=== PATIENT | male | born 1975 | race Caucasian/White ===

== ENCOUNTER 2017-08-13 14:59 | Inpatient (IN) | payer MEDICARE, OTHER ==
[~2017-08-13] VITALS: Ht 172.7 cm; Wt 50.0 kg
[~2017-08-13 14:59] MED LIST: ASCO500C PO; COLA50CA PO; FENT75DI TD; LORA-392 PO; LORTA5 PO; MIRA33502 PO; MIRTA15 PO; MORP30SU PO; MULTTAB PO; ZINC220C3 PO; ZOLP1TAB32 PO
[2017-08-13 15:11] VITALS: BP 99/62; PULSE 98; RESP 17; TEMP 98.6; O2SAT 97
[2017-08-13 16:30] VITALS: BP 98/68; PULSE 92; RESP 17; O2SAT 97
[2017-08-13] MEDS ORDERED: SODIUM CHLOR 0.9% 1000 ML INJ 1,000 ML IV ONE (16:45)
--- NOTE | 2017-08-13 17:47 | PD ---
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 Hemoglobin was reported to be 6.2 with hematocrit of 22.4. The patient's care team, including the hospice nurse, spoke with the patient's father and decision-maker who gave permission for the patient to be transported to [place] and had blood transfusion should they be required. On arrival the patient is alert and oriented. He does have some repetitive vocalizations but he intermittently answers questions appropriately. He has no complaints. He is requesting a meal. PFSH Past Medical History Genitourinary: Yes (URETHRAL STRICTURES--OBSTRUCTIVE UROPATHY/TINAJERO CATH, FREQUENT UTI) Musculoskeletal: Yes (CONTRACTURE OF JOINTS MULTIPLE SITES, CHRONIC R SHOULDER DISLOCATION) Neurologic: Yes (ANOXIC BRAIN DAMAGE, ENCEPAHLOPATHY, EXPRESSIVE APHASIA) Psychiatric: Yes (ANXIETY, ANOXIC BRAIN DAMAGE, PSYCHOSIS,DEPRESSION) Reproductive: No Past Surgical History Body Medical Devices: MAMTA FILTER, BACLOFEN PUMP Social History Tobacco Use: Yes (distant) Substance Use: Yes (HX OF OVERDOSE) Allergies-Medications (Allergen,Severity, Reaction): Coded Allergies: No Known Allergies (Unverified , 03/10/14) Reported Meds & Prescriptions Reported Meds & Active Scripts Active Reported Multimineral Plus (Multiple Vitamins W/ Minerals) Plus Tab 1 Tab PO DAILY Zinc Sulfate 220 Mg Cap 220 Mg PO DAILY Vitamin C (Ascorbic Acid) 500 Mg Cap 500 Mg PO BID Miralax (Polyethylene Glycol) 255 Gm Powd 1 Capful PO TID MIX 1 CAPFUL (17 GM) IN 8 OZ WATER Morphine Sulfate 30 Mg Tab 30 Mg PO Q8 Mirtazapine 15 Mg Tab 15 Mg PO HS [place] 5/325 (Hydrocodone-Acetaminophen) 325 Mg/5 Mg Tab 1 Tab PO BID PRN Fentanyl 75 Mcg/Hr Dis 75 Mcg TD Q3D Colace (Docusate Sodium) 50 Mg Cap 100 Mg PO BID Ativan (Lorazepam) 0.5 Mg Tab 0.5 Tab PO Q8 PRN Ambien 5 Mg Tab (Zolpidem Tartrate) 5 Mg Tab 5 Mg PO HS Review of Systems Except as stated in HPI: all other systems reviewed are Neg Physical Exam Narrative GENERAL: Thin, contracted male in no acute distress. SKIN: Focused skin assessment warm/dry. Mild erythema in the coccygeal region. No broken skin noted. HEAD: Normocephalic. EYES: No scleral icterus. No injection or drainage. NECK: Supple, trachea midline. No JVD or lymphadenopathy. CARDIOVASCULAR: Regular rate and rhythm without murmurs, gallops, or rubs. RESPIRATORY: Breath sounds clear and equal bilaterally. No accessory muscle use. GASTROINTESTINAL: Abdomen scaphoid, nontender, active bowel sounds. RECTAL EXAM: No masses or tenderness, stool is brown. Guaiac weakly positive. MUSCULOSKELETAL: No cyanosis, or edema. Contractures in all limbs. BACK: Nontender without obvious deformity. No CVA tenderness. Data Data Last Documented VS Vital Signs Date Time Temp Pulse Resp B/P (MAP) Pulse Ox O2 Delivery O2 Flow Rate FiO2 08/13/17 15:11 98.6 98 17 99/62 (74) 97 Orders Orders Complete Blood Count With Diff (08/13/17 16:33) Comprehensive Metabolic Panel (08/13/17 16:33) Iv Access Insert/Monitor (08/13/17 16:33) Ecg Monitoring (08/13/17 16:33) Oximetry (08/13/17 16:33) Coag Profile (08/13/17 16:33) Type And Screen (08/13/17 16:33) Sodium Chlor 0.9% 1000 Ml Inj (Ns 1000 M (08/13/17 16:45) Red Blood Cells (Rbc) (08/13/17 17:52) Blood Product Administration (08/13/17 17:52) Sodium Chlor 0.9% 250 Ml Inj (Ns 250 Ml (08/13/17 18:00) Admit Order (Ed Use Only) (08/13/17 18:02) MDM Medical Decision Making Medical Screen Exam Complete: Yes Emergency Medical Condition: Yes Differential Diagnosis Anemia versus GI bleed versus dehydration versus metabolic derangement versus other Narrative Course 42-year-old male with 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 Hemoglobin was reported to be 6.2 with hematocrit of 22.4. The patient's care team, including the hospice nurse, spoke with the patient's father and decision-maker who gave permission for the patient to be transported to [place] and had blood transfusion should they be required. On arrival the patient is alert and oriented. He does have some repetitive vocalizations but he intermittently answers questions appropriately. He has no complaints. He is requesting a meal. Afebrile, pulse 98, BP 99/62, pulse ox 97% on presentation. Physical exam reveals an alert male in no acute distress. Cachectic and contractured. Weakly guaiac positive on rectal exam. I spoke with the hospice nurse, Gina Marley who was not involved in the decision to transfer the patient to the hospital today. She attempted to reach the patient's father and decision-maker but was unable. I spoke with the sales account director, Padmaja Iglesias, at [facility]. She states that a second sales account director spoke with the father today. She provided the father's contact information. I spoke with the patient's father, Mr. Wally Reyes at 1639. He consents to lab, fluids, blood transfusion and consult to gastroenterology. He does not rescind the DNR. Patient's father states that he will be into the hospital very early tomorrow morning. In the meantime he is reachable by cell phone area code or [phone] On review of the patient's record his hemoglobin has been tr trending downward since 07/16/17. IV was established, 1 L normal saline ordered. CBC, CMP, coags, type and screen , 2 units PRBC pending. I spoke with Dr. Minor who agrees to accept the patient for observation by the medicine service. Please see medicine notes for disposition. Nini Hoover Aug 13, 2017 17:47
[2017-08-13] MEDS ORDERED: SODIUM CHLOR 0.9% 250 ML INJ 250 ML IV ONE (18:00)
--- NOTE | 2017-08-13 18:11 | HHI.HP ---
HPI Service [facility] Hospitalists Primary Care Physician Donis Aguillon MD Admission Diagnosis Anemia, GI bleed Diagnoses: Chief Complaint: Anemia GIB Travel History International Travel<30 Days: No Contact w/Intl Traveler <30 Da: No Traveled to Known Affected Are: No History of Present Illness Written by Sharlene Hdz, acting as scribe for Dr. Minor on 08/13/17 at 18: 07. This is a 42-year-old male with PMH of anoxic brain injury secondary to drug overdose currently under [facility] who presents to [facility] ED for evaluation of anemia reported by lab work completed at the patients facility. Unable to obtain history from patient secondary to cognitive impairment and therefore history is obtained from discussion with the ED and review of the medical record. Reportedly, hemoglobin was reported to be 6.2 and hematocrit of 22.4. Per the ED note, the patient's care team, including the hospice nurse, spoke with the patient's father who is the decision-maker and gave permission for the patient to be transported to [place] and have blood transfusion should that be needed. Also per ED note, patient's father consents to lab, fluids, blood transfusion and consult to gastroenterology. He does not resend patient's DO NOT RESUSCITATE status. Patient is alert and oriented. He does have some repetitive vocalizations but he intermittently answers questions appropriately. He has no complaints. He is wanting to eat. Patients stool hemoccult was positive. Review of Systems Unable to complete 10 point review of systems secondary to patients cognitive impairment Past Family Social History Past Medical History Hx of overdose with anoxic brain injury Past Surgical History Baclofen pain pump insertion [place] filter Reported Medications Multimineral Plus (Multiple Vitamins W/ Minerals) Plus Tab 1 Tab PO DAILY Zinc Sulfate 220 Mg Cap 220 Mg PO DAILY Vitamin C (Ascorbic Acid) 500 Mg Cap 500 Mg PO BID Miralax (Polyethylene Glycol) 255 Gm Powd 1 Capful PO TID MIX 1 CAPFUL (17 GM) IN 8 OZ WATER Morphine Sulfate 30 Mg Tab 30 Mg PO Q8 Mirtazapine 15 Mg Tab 15 Mg PO HS [place] 5/325 (Hydrocodone-Acetaminophen) 325 Mg/5 Mg Tab 1 Tab PO BID PRN Fentanyl 75 Mcg/Hr Dis 75 Mcg TD Q3D Colace (Docusate Sodium) 50 Mg Cap 100 Mg PO BID Ativan (Lorazepam) 0.5 Mg Tab 0.5 Tab PO Q8 PRN Ambien 5 Mg Tab (Zolpidem Tartrate) 5 Mg Tab 5 Mg PO HS Allergies: Coded Allergies: No Known Allergies (Unverified , 03/10/14) Active Ordered Medications Current Medications Medications (Trade) Dose Ordered Sig/Juhi Route Start Time Stop Time Status Last Admin Sodium Chloride 250 ml @ 15 mls/hr ONCE ONCE IV 08/13/17 18:00 08/14/17 10:39 Family History Unable to obtain Social History Unable to obtain from patient Hx of anoxic brain injury secondary to drug overdose Physical Exam Vital Signs Vital Signs Date Time Temp Pulse Resp B/P (MAP) Pulse Ox O2 Delivery O2 Flow Rate FiO2 08/13/17 15:11 98.6 98 17 99/62 (74) 97 Physical Exam GENERAL: This is a thin male patient, INAD. Awake and alert. SKIN: No rashes, ecchymoses or lesions. Pale. Cool and dry. HEAD: Atraumatic. Normocephalic. No temporal or scalp tenderness. EYES: Pupils equal round and reactive. Extraocular motions intact. No scleral icterus. No injection or drainage. ENT: Nose without bleeding or purulent drainage. Throat without erythema, tonsillar hypertrophy or exudate. Uvula midline. Airway patent. NECK: Trachea midline. No lymphadenopathy. Supple, nontender, no meningeal signs. CARDIOVASCULAR: Tachycardic without murmurs, gallops, or rubs. RESPIRATORY: Clear to auscultation. Breath sounds equal bilaterally. No wheezes , rales, or rhonchi. GASTROINTESTINAL: Abdomen soft, non-tender, nondistended. No hepato-splenomegaly , or palpable masses. No guarding. s/p Baclofen pain pump insertion. MUSCULOSKELETAL: Extremity contractures in all limbs. No edema noted. NEUROLOGICAL: Awake and alert. Repetitive vocalizations but does answer some questions appropriately. Result Diagram: 08/13/17180908/13/171809 Caprini VTE Risk Assessment Caprini VTE Risk Assessment: Mod/High Risk (score >= 2) Caprini Risk Assessment Model Point Value = 1 Point Value = 2 Point Value = 3 Point Value = 5 Age 41-60 Minor surgery BMI > 25 kg/m2 Swollen legs Varicose veins or History of unexplained or recurrent spontaneous Oral contraceptives or hormone replacement Sepsis (< 1 month) Serious lung disease, including pneumonia (< 1 month) Abnormal pulmonary function Acute myocardial infarction Congestive heart failure (< 1 month) History of inflammatory bowel disease Medical patient at bed rest Age 61-74 Arthroscopic surgery Major open surgery (> 45 min) Laparoscopic surgery (> 45 min) Malignancy Confined to bed (> 72 hours) Immobilizing plaster cast Central venous access Age >= 75 History of VTE Family history of VTE Factor V Leiden Prothrombin [id number] Lupus anticoagulant Anticardiolipin antibodies Elevated serum homocysteine Heparin-induced thrombocytopenia Other congenital or acquired thrombophilia Stroke (< 1 month) Elective arthroplasty Hip, pelvis, or leg fracture Acute spinal cord injury (< 1 month) Prophylaxis Regimen Total Risk Factor Score Risk Level Prophylaxis Regimen 0-1 Low Early ambulation 2 Moderate Order ONE of the following: *Sequential Compression Device (SCD) *Heparin 5000 units SQ BID 3-4 Higher Order ONE of the following medications: *Heparin 5000 units SQ TID *Enoxaparin/Lovenox 40 mg SQ daily (WT < 150 kg, CrCl > 30 mL/min) *Enoxaparin/Lovenox 30 mg SQ daily (WT < 150 kg, CrCl > 10-29 mL/min) *Enoxaparin/Lovenox 30 mg SQ BID (WT < 150 kg, CrCl > 30 mL/min) AND/OR *Sequential Compression Device (SCD) 5 or more Highest Order ONE of the following medications: *Heparin 5000 units SQ TID (Preferred with Epidurals) *Enoxaparin/Lovenox 40 mg SQ daily (WT < 150 kg, CrCl > 30 mL/min) *Enoxaparin/Lovenox 30 mg SQ daily (WT < 150 kg, CrCl > 10-29 mL/min) *Enoxaparin/Lovenox 30 mg SQ BID (WT < 150 kg, CrCl > 30 mL/min) AND *Sequential Compression Device (SCD) Assessment and Plan Assessment and Plan 42-year-old male with PMH of anoxic brain injury secondary to drug overdose currently under [facility] care [facility] who presents to [facility] ED for evaluation of anemia reported by lab work completed at the patients facility. Symptomatic anemia GIB - Hemoglobin 6.2 08/10/17 - Hemoccult-positive - ED staff in the process of trying to obtain blood specimen to repeat H&H - Protonic gtt - Consult GI, appreciate recommendations - Obtain iron studies, B12 and folate level - Transfuse 2 units of PRBCs. Continue to monitor hemoglobin closely. Hypotensive - IVF ordered - Monitor intake and output - bed rest - continue to monitor BP closely - continuous cardiac monitoring Anoxic brain injury secondary to drug overdose 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 - Unsure of patient's ability to swallow - Nursing bedside swallow evaluation - Clear liquid diet - Patient is a DO NOT RESUSCITATE DVT prophylaxis - Chemoprophylaxis contraindicated at this time secondary to GIB - Bilateral SCD/BREANNA hose This note was transcribed by shamir Hdz. I, Dr. Aurea Minor personally performed the history, physical exam, and medical decision making; and confirmed the accuracy of the information in the transcribed note. Authenticated by Dr. Aurea Minor on 08/13/17 at 1810. Code Status DNR Discussed Condition With ED physician, nursing staff, patient's father 2 Midnight Certification Type: Admission for Inpatient Services Order for Inpatient Services The services are ordered in accordance with Medicare regulations or non- Medicare payer requirements, as applicable. In the case of services not specified as inpatient-only, they are appropriately provided as inpatient services in accordance with the 2-midnight benchmark. Estimated LOS (days): 2 days is the estimated time the patient will need to remain in the hospital, assuming treatment plan goals are met and no additional complications. Post-Hospital Plan: Not yet determined Sharlene Hdz Aug 13, 2017 18:11 Aurea Minor MD Aug 13, 2017 19:16
[2017-08-13] MEDS: D5-1/2 NS + KCL 20 MEQ INJ 1,000 ML IV SCH (18:16)
[2017-08-13 18:27] VITALS: O2SAT 96
[2017-08-13] MEDS ORDERED: NALOXONE HCL 0.4 MG/ML AMP IV PUSH PRN (18:30)
[2017-08-13] MEDS ORDERED: BISACODYL 10 MG SUPP RECTAL PRN (18:30)
[2017-08-13] MEDS ORDERED: MAGNESIUM HYDROXIDE SUSP 30 ML CUP PO PRN (18:30)
[2017-08-13] MEDS ORDERED: ACETAMINOPHEN 325 MG TAB PO PRN (18:30)
[2017-08-13] MEDS ORDERED: SODIUM CHLORIDE 0.9% FLUSH 10 ML FLUSH IV FLUSH PRN (18:30)
[2017-08-13] MEDS ORDERED: LACTULOSE SYRUP 20 GM/30 ML CUP PO PRN (18:30)
[2017-08-13] MEDS ORDERED: ONDANSETRON HCL 4 MG/2 ML VIAL IVP PRN (18:30)
[2017-08-13] MEDS ORDERED: SENNOSIDES 8.6 MG TAB PO PRN (18:30)
[2017-08-13 18:38] LABS: AUTOMATED NEUTROPHIL # 5.8 TH/MM3 (1.8-7.7); BASOPHIL % 0.3 % (0.0-2.0); EOSINOPHIL # 0.1 TH/MM3 (0-0.4); HEMATOCRIT 25.5 % (39.0-51.0); HEMOGLOBIN 7.4 GM/DL (13.0-17.0); LYMPH % 18.8 % (9.0-44.0); LYMPHOCYTE # 1.5 TH/MM3 (1.0-4.8); MEAN CELL VOLUME 66.4 FL (80.0-100.0); MEAN CORPUSCULAR HEMOGLOBIN 19.2 PG (27.0-34.0); MEAN PLATELET VOLUME 7.1 FL (7.0-11.0); MONO % 8.3 % (0.0-8.0); MONOCYTE # 0.7 TH/MM3 (0-0.9); NEUT % 71.6 % (16.0-70.0); PLATELET COUNT 291 TH/MM3 (150-450); RED BLOOD COUNT 3.84 MIL/MM3 (4.50-5.90); RED CELL DISTRIBUTION WIDTH 21.6 % (11.6-17.2); WHITE BLOOD COUNT 8.1 TH/MM3 (4.0-11.0)
[2017-08-13 18:50] LABS: ALBUMIN 1.7 GM/DL (3.4-5.0); AST (GOT) 15 U/L (15-37); BICARBONATE 28.3 MEQ/L (21.0-32.0); BLOOD UREA NITROGEN 13 MG/DL (7-18); CALCIUM 8.4 MG/DL (8.5-10.1); CHLORIDE 109 MEQ/L (98-107); GLOMERULAR FILTRATION RATE 83 ML/MIN (>89); GLUCOSE,RANDOM 84 MG/DL (74-106); SODIUM (NA) 142 MEQ/L (136-145)
[2017-08-13 18:51] LABS: ALT (GPT) 9 U/L (12-78)
[2017-08-13 18:59] LABS: ALKALINE PHOSPHATASE 73 U/L (45-117); IRON (FE) 14 MCG/DL (65-175); TOTAL BILIRUBIN ADULT 0.3 MG/DL (0.2-1.0); TOTAL IRON BINDING CAPACITY 175 MCG/DL (250-450); TOTAL PROTEIN 7.7 GM/DL (6.4-8.2)
[2017-08-13 19:05] LABS: MEAN CORPUSCULAR HGB CONC 28.9 % (32.0-36.0)
[2017-08-13 19:27] LABS: FERRITIN 87 NG/ML (26-388); FOLATE 5.5 NG/ML (3.1-17.5)
[2017-08-13] MEDS ORDERED: PANTOPRAZOLE INJ 80 MG in SODIUM CHLORIDE 0.9% INJ 35 ML IV ONE (19:46)
[2017-08-13 21:00] VITALS: BP 120/72; PULSE 121; RESP 18; TEMP 97.3; O2SAT 95
[2017-08-13] MEDS ORDERED: LORazepam 0.5 MG TAB PO PRN (21:00)
[2017-08-13] MEDS ORDERED: ACETAMINOPHEN/HYDROcodone 325 MG/10 MG TAB PO PRN (21:00)
[2017-08-13] MEDS: SODIUM CHLORIDE 0.9% FLUSH 10 ML FLUSH IV FLUSH SCH (21:19)
[2017-08-13] MEDS: PANTOPRAZOLE INJ 80 MG in SODIUM CHLORIDE 0.9% INJ 100 ML IV SCH (21:19)
[2017-08-13] MEDS ORDERED: PILL SPLITTER OTHER PRN (21:30)
[2017-08-13 21:33] LABS: INTERNATIONAL NORMALIZED RATIO 1.1 RATIO; PROTHROMBIN TIME - PATIENT 11.2 SEC (9.8-11.6)
[2017-08-13] MEDS: CARISOPRODOL 350 MG TAB PO SCH (22:02)
[2017-08-13] MEDS: DIVALPROEX SODIUM SPRINKLES 125 MG CAP PO SCH (22:02)
[2017-08-13] MEDS: MIRTAZAPINE 15 MG TAB PO SCH (22:02)
[2017-08-13] MEDS: LORazepam 0.5 MG TAB PO SCH (22:02)
[2017-08-13] MEDS: MORPHINE SULFATE 30 MG CONTROLLED RELEASE TAB PO SCH (22:02)
[2017-08-13] MEDS: traZODone HCL 50 MG TAB PO SCH (22:04)
[2017-08-13 23:22] VITALS: BP 109/57; PULSE 107; RESP 17; TEMP 98.7; O2SAT 91
[2017-08-13 23:42] VITALS: BP 101/56; PULSE 102; RESP 18; TEMP 98.1; O2SAT 92
[2017-08-14] VITALS (10 sets, daily range): BP systolic 105–133; BP diastolic 60–77; PULSE 18–101; RESP 16–19; TEMP 97.5–98.1; O2SAT 93–98
[2017-08-14] MEDS: D5-1/2 NS + KCL 20 MEQ INJ 1,000 ML IV SCH ×2 (06:23→14:50)
[2017-08-14] MEDS: CARISOPRODOL 350 MG TAB PO SCH ×3 (06:24→22:18)
[2017-08-14] MEDS: LORazepam 0.5 MG TAB PO SCH ×3 (06:24→22:17)
[2017-08-14] MEDS: MORPHINE SULFATE 30 MG CONTROLLED RELEASE TAB PO SCH ×3 (06:24→22:18)
[2017-08-14 07:30] LABS: BASOPHIL % 0.5 % (0.0-2.0); EOSINOPHIL # 0.1 TH/MM3 (0-0.4); EOSINOPHIL % 1.4 % (0.0-4.0); HEMATOCRIT 30.8 % (39.0-51.0); HEMOGLOBIN 9.5 GM/DL (13.0-17.0); LYMPH % 22.5 % (9.0-44.0); LYMPHOCYTE # 1.7 TH/MM3 (1.0-4.8); MEAN CELL VOLUME 69.4 FL (80.0-100.0); MEAN CORPUSCULAR HEMOGLOBIN 21.3 PG (27.0-34.0); MEAN CORPUSCULAR HGB CONC 30.8 % (32.0-36.0); MEAN PLATELET VOLUME 7.2 FL (7.0-11.0); MONOCYTE # 0.8 TH/MM3 (0-0.9); NEUT % 64.6 % (16.0-70.0); PLATELET COUNT 222 TH/MM3 (150-450); RED BLOOD COUNT 4.44 MIL/MM3 (4.50-5.90); RED CELL DISTRIBUTION WIDTH 22.5 % (11.6-17.2); WHITE BLOOD COUNT 7.7 TH/MM3 (4.0-11.0)
[2017-08-14 07:51] LABS: BICARBONATE 24.6 MEQ/L (21.0-32.0); CALCIUM 8.1 MG/DL (8.5-10.1); CREATININE 0.95 MG/DL (0.60-1.30)
[2017-08-14] MEDS: fentaNYL 100 MCG/HR PATCH T-DERMAL SCH (09:00)
[2017-08-14] MEDS: SODIUM CHLORIDE 0.9% FLUSH 10 ML FLUSH IV FLUSH SCH ×2 (09:00→21:00)
[2017-08-14] MEDS: REMOVE OLD DURAGESIC (FENTANYL) PATCH T-DERMAL SCH (09:00)
[2017-08-14] MEDS: PANTOPRAZOLE INJ 80 MG in SODIUM CHLORIDE 0.9% INJ 100 ML IV SCH ×2 (09:08→18:48)
[2017-08-14] MEDS: DIVALPROEX SODIUM SPRINKLES 125 MG CAP PO SCH ×2 (09:12→22:18)
[2017-08-14] MEDS: fentaNYL 25 MCG/HR PATCH T-DERMAL SCH (09:14)
--- NOTE | 2017-08-14 10:55 | HHI.PR ---
Subjective Remarks Follow-up symptomatic anemia/GI bleed 08/14/17-patient seen and examined, transfused 2 units and H&H stable. Objective Vitals Vital Signs Date Time Temp Pulse Resp B/P (MAP) Pulse Ox O2 Delivery O2 Flow Rate FiO2 08/14/17 08:00 97.5 77 18 122/65 (84) 95 08/14/17 04:21 97.8 81 19 114/63 (80) 98 08/14/17 04:15 97.8 18 19 114/63 98 08/14/17 02:28 97.8 79 18 112/65 97 08/14/17 02:15 97.6 90 18 129/77 93 08/14/17 00:47 98.1 95 18 105/60 (75) 93 08/14/17 00:00 101 08/13/17 23:42 98.1 102 18 101/56 92 08/13/17 23:22 98.7 107 17 109/57 91 08/13/17 21:00 97.3 121 18 120/72 (88) 95 08/13/17 19:09 08/13/17 18:27 96 08/13/17 16:30 92 17 98/68 (78) 97 Room Air 08/13/17 15:11 98.6 98 17 99/62 (74) 97 I/O 08/13/17 08/13/17 08/13/17 08/14/17 08/14/17 08/14/17 07:00 15:00 23:00 07:00 15:00 23:00 Intake Total 2270 ml 100 ml Balance 2270 ml 100 ml Intake IV Total 1420 ml 100 ml Packed Cells 800 ml Blood Product IV Normal Saline Flush 50 ml # Voids 3 # Bowel Movements 1 Result Diagram: 08/14/17 0700 08/14/17 0700 Objective Remarks GENERAL: NAD with contracture to extremities SKIN: Warm and dry. HEAD: Normocephalic. EYES: No scleral icterus. No injection or drainage. NECK: Supple, trachea midline. No JVD or lymphadenopathy. CARDIOVASCULAR: Regular rate and rhythm without murmurs, gallops, or rubs. RESPIRATORY: Breath sounds equal bilaterally. No accessory muscle use. GASTROINTESTINAL: Abdomen soft, non-tender, nondistended. MUSCULOSKELETAL: No cyanosis, or edema. BACK: Nontender without obvious deformity. No CVA tenderness. A/P Problem List: (1) GI bleed ICD Code: K92.2 - Gastrointestinal hemorrhage, unspecified (2) Symptomatic anemia ICD Code: D64.9 - Anemia, unspecified (3) Anoxic brain injury ICD Code: G93.1 - Anoxic brain injury Status: Chronic Assessment and Plan 42-year-old man with Symptomatic anemia GIB - s/p Transfusion 2 units PRBC - Continue Protonic gtt - Consult GI, appreciate recommendations - Obtain iron studies, B12 and folate level Hypotensive - Resolved with IVF ordered Anoxic brain injury secondary to drug overdose 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 - Clear liquid diet - Patient is a DO NOT RESUSCITATE DVT prophylaxis - Chemoprophylaxis contraindicated at this time secondary to GIB - Bilateral SCD/BREANNA Tyler Mai MD Aug 14, 2017 10:55
--- NOTE | 2017-08-14 12:16 | PD.CONS ---
HPI History of Present Illness This is a 42 year old male with hx anoxic brain injury d/t drug overdose in 2003 who presented to ED for abnormal labwork indicating anemia, hgb was 7.4 on admission and stool pos for occult blood. THere is no report of bleeding. He is currently on hospice. D/w pt's parents and they wish to pursue endoscopy; but will not pursue surgery should findings require that. Hx colon ca in pt's father and grandfather. Pt has never had EGD or colonoscopy. Hx obtained from EMR and pt's father. Pt nonverbal. (Libby Mcgee) PFSH Past Medical History Hx of overdose with anoxic brain injury Past Surgical History Baclofen pain pump insertion [place] filter (Libby Mcgee) Coded Allergies: No Known Allergies (Unverified , 03/10/14) Family History colon ca, father and grandfather Social History Unable to obtain from patient Hx of anoxic brain injury secondary to drug overdose (Libby Mcgee) Review of Systems noncontributory (Libby Mcgee) GI Exam Vitals I&O Vital Signs Date Time Temp Pulse Resp B/P (MAP) Pulse Ox O2 Delivery O2 Flow Rate FiO2 08/14/17 08:00 97.5 77 18 122/65 (84) 95 08/14/17 04:21 97.8 81 19 114/63 (80) 98 08/14/17 04:15 97.8 18 19 114/63 98 08/14/17 02:28 97.8 79 18 112/65 97 08/14/17 02:15 97.6 90 18 129/77 93 08/14/17 00:47 98.1 95 18 105/60 (75) 93 08/14/17 00:00 101 08/13/17 23:42 98.1 102 18 101/56 92 08/13/17 23:22 98.7 107 17 109/57 91 08/13/17 21:00 97.3 121 18 120/72 (88) 95 08/13/17 19:09 08/13/17 18:27 96 08/13/17 16:30 92 17 98/68 (78) 97 Room Air 08/13/17 15:11 98.6 98 17 99/62 (74) 97 I/O 08/13/17 08/13/17 08/13/17 08/14/17 08/14/17 08/14/17 07:00 15:00 23:00 07:00 15:00 23:00 Intake Total 2270 ml 100 ml Balance 2270 ml 100 ml Intake IV Total 1420 ml 100 ml Packed Cells 800 ml Blood Product IV Normal Saline Flush 50 ml # Voids 3 # Bowel Movements 1 Laboratory Test 08/13/17 18:10 08/13/17 20:00 08/14/17 07:00 White Blood Count 8.1 TH/MM3 7.7 TH/MM3 Red Blood Count 3.84 MIL/MM3 4.44 MIL/MM3 Hemoglobin 7.4 GM/DL 9.5 GM/DL Hematocrit 25.5 % 30.8 % Mean Corpuscular Volume 66.4 FL 69.4 FL Mean Corpuscular Hemoglobin 19.2 PG 21.3 PG Mean Corpuscular Hemoglobin Concent 28.9 % 30.8 % Red Cell Distribution Width 21.6 % 22.5 % Platelet Count 291 TH/MM3 222 TH/MM3 Mean Platelet Volume 7.1 FL 7.2 FL Neutrophils (%) (Auto) 71.6 % 64.6 % Lymphocytes (%) (Auto) 18.8 % 22.5 % Monocytes (%) (Auto) 8.3 % 11.0 % Eosinophils (%) (Auto) 1.0 % 1.4 % Basophils (%) (Auto) 0.3 % 0.5 % Neutrophils # (Auto) 5.8 TH/MM3 5.0 TH/MM3 Lymphocytes # (Auto) 1.5 TH/MM3 1.7 TH/MM3 Monocytes # (Auto) 0.7 TH/MM3 0.8 TH/MM3 Eosinophils # (Auto) 0.1 TH/MM3 0.1 TH/MM3 Basophils # (Auto) 0.0 TH/MM3 0.0 TH/MM3 CBC Comment DIFF FINAL DIFF FINAL Differential Comment Blood Urea Nitrogen 13 MG/DL 14 MG/DL Creatinine 1.00 MG/DL 0.95 MG/DL Random Glucose 84 MG/DL 84 MG/DL Total Protein 7.7 GM/DL Albumin 1.7 GM/DL Calcium Level 8.4 MG/DL 8.1 MG/DL Alkaline Phosphatase 73 U/L Aspartate Amino Transf (AST/SGOT) 15 U/L Alanine Aminotransferase (ALT/SGPT) 9 U/L Total Bilirubin 0.3 MG/DL Sodium Level 142 MEQ/L 141 MEQ/L Potassium Level 4.5 MEQ/L 4.8 MEQ/L Chloride Level 109 MEQ/L 110 MEQ/L Carbon Dioxide Level 28.3 MEQ/L 24.6 MEQ/L Anion Gap 5 MEQ/L 6 MEQ/L Estimat Glomerular Filtration Rate 83 ML/MIN 88 ML/MIN Iron Level 14 MCG/DL Total Iron Binding Capacity 175 MCG/DL Percent Iron Saturation 8.0 % Ferritin 87 NG/ML Vitamin B12 Level 807 PG/ML Folate 5.5 NG/ML Prothrombin Time 11.2 SEC Prothromb Time International Ratio 1.1 RATIO Activated Partial Thromboplast Time 23.2 SEC Physical Examination HEENT: PERRL; normocephalic; atraumatic; no jaundice. CHEST: diminished, shallow respirations CARDIAC: RRR ABDOMEN: Soft, nondistended, nontender; no hepatosplenomegaly; bowel sounds are present in all four quadrants. EXTREMITIES: significant contractures all four extremities SKIN: Normal; no rash; no jaundice. CLOTH BALE HEADER: nonverbal, not responsive (Libby Mcgee) Assessment and Plan Plan ASSESSMENT - anemia with heme pos stool - microcytic, hypochromic. hgb 7.4 on admission and now s/p 2x PRBC no prior hx GIB or endoscopy. pt on hospice, family wishes to pursue endoscopy. FAmily would decline surgery, goals seem inconsistent. d/w primary - anoxic brain injury, contractures PLAN - EGD and colonoscopy in am - clears today - NPO after MN - obtain consent - 2 x mg citrate this evening - monitor labs - transfuse as needed further recs to follow pt seen by myself and dr Mera and this note is written on his behalf (Libby Mcgee) Physician Comments Seen and examined with Giovanna, No active bleeding. Family desires gi merchant. Planned for tomorrow if can do prep. Thank you (Yee Mera MD) Libby Mcgee Aug 14, 2017 12:16 Yee Mera MD Aug 14, 2017 15:53
[2017-08-14] MEDS ORDERED: PEG (High)/E-LYTE SOLN 4000 ML BTL PO ONE (16:00)
[2017-08-14] MEDS ORDERED: MAGNESIUM CITRATE SOLN 300 ML BTL PO ONE ×2 (18:15→20:15)
[2017-08-14] MEDS: traZODone HCL 50 MG TAB PO SCH (22:17)
[2017-08-14] MEDS: MIRTAZAPINE 15 MG TAB PO SCH (22:18)
[2017-08-15] VITALS (11 sets, daily range): BP systolic 102–130; BP diastolic 52–84; PULSE 75–101; RESP 16–18; TEMP 97.3–98.1; O2SAT 96–99
[2017-08-15] MEDS: D5-1/2 NS + KCL 20 MEQ INJ 1,000 ML IV SCH ×3 (00:16→19:58)
[2017-08-15 06:20] LABS: AUTOMATED NEUTROPHIL # 5.4 TH/MM3 (1.8-7.7); BASOPHIL % 0.5 % (0.0-2.0); EOSINOPHIL # 0.1 TH/MM3 (0-0.4); EOSINOPHIL % 1.4 % (0.0-4.0); HEMATOCRIT 29.7 % (39.0-51.0); HEMOGLOBIN 9.1 GM/DL (13.0-17.0); LYMPH % 18.6 % (9.0-44.0); LYMPHOCYTE # 1.4 TH/MM3 (1.0-4.8); MEAN CORPUSCULAR HEMOGLOBIN 21.3 PG (27.0-34.0); MEAN CORPUSCULAR HGB CONC 30.8 % (32.0-36.0); MEAN PLATELET VOLUME 7.1 FL (7.0-11.0); MONO % 9.3 % (0.0-8.0); MONOCYTE # 0.7 TH/MM3 (0-0.9); NEUT % 70.2 % (16.0-70.0); PLATELET COUNT 214 TH/MM3 (150-450); RED CELL DISTRIBUTION WIDTH 23.3 % (11.6-17.2); WHITE BLOOD COUNT 7.7 TH/MM3 (4.0-11.0)
[2017-08-15 06:42] LABS: BICARBONATE 25.6 MEQ/L (21.0-32.0); CALCIUM 8.2 MG/DL (8.5-10.1); CREATININE 0.98 MG/DL (0.60-1.30)
[2017-08-15] MEDS: LORazepam 0.5 MG TAB PO SCH ×3 (06:47→19:57)
[2017-08-15] MEDS: PANTOPRAZOLE INJ 80 MG in SODIUM CHLORIDE 0.9% INJ 100 ML IV SCH (06:47)
[2017-08-15] MEDS: MORPHINE SULFATE 30 MG CONTROLLED RELEASE TAB PO SCH ×3 (06:47→19:57)
[2017-08-15] MEDS: CARISOPRODOL 350 MG TAB PO SCH ×3 (06:47→19:57)
[2017-08-15] MEDS: DIVALPROEX SODIUM SPRINKLES 125 MG CAP PO SCH ×2 (08:58→19:56)
[2017-08-15] MEDS: SODIUM CHLORIDE 0.9% FLUSH 10 ML FLUSH IV FLUSH SCH ×2 (08:58→19:58)
--- NOTE | 2017-08-15 09:15 | HHI.PR ---
Subjective Remarks Follow-up symptomatic anemia/GI bleed 08/14/17-patient seen and examined, transfused 2 units and H&H stable. 08/15/17-and examined, nonverbal, currently nothing by mouth pending and panendoscopy this morning. No acute event overnight Objective Vitals Vital Signs Date Time Temp Pulse Resp B/P (MAP) Pulse Ox O2 Delivery O2 Flow Rate FiO2 08/15/17 09:00 98.1 77 16 102/52 (69) 97 08/15/17 05:41 77 08/15/17 04:00 97.3 87 18 130/71 (90) 99 08/15/17 01:01 90 08/15/17 00:00 97.5 98 18 129/82 (98) 96 08/14/17 20:00 98.0 87 18 118/67 (84) 95 08/14/17 19:45 74 08/14/17 12:00 98.1 76 16 133/65 (87) 94 I/O 08/14/17 08/14/17 08/14/17 08/15/17 08/15/17 08/15/17 07:00 15:00 23:00 07:00 15:00 23:00 Intake Total 2270 ml 100 ml Balance 2270 ml 100 ml Intake IV Total 1420 ml 100 ml Packed Cells 800 ml Blood Product IV Normal Saline Flush 50 ml # Voids 6 Result Diagram: 08/15/17 0607 08/15/17 0607 Objective Remarks GENERAL: NAD with contracture to extremities SKIN: Warm and dry. HEAD: Normocephalic. EYES: No scleral icterus. No injection or drainage. NECK: Supple, trachea midline. No JVD or lymphadenopathy. CARDIOVASCULAR: Regular rate and rhythm without murmurs, gallops, or rubs. RESPIRATORY: Breath sounds equal bilaterally. No accessory muscle use. GASTROINTESTINAL: Abdomen soft, non-tender, nondistended. MUSCULOSKELETAL: No cyanosis, or edema. BACK: Nontender without obvious deformity. No CVA tenderness. A/P Problem List: (1) GI bleed ICD Code: K92.2 - Gastrointestinal hemorrhage, unspecified (2) Symptomatic anemia ICD Code: D64.9 - Anemia, unspecified (3) Anoxic brain injury ICD Code: G93.1 - Anoxic brain injury Status: Chronic Assessment and Plan 42-year-old man with Symptomatic anemia GIB - s/p Transfusion 2 units PRBC - DC Protonic gtt mouth and start PPI - Plan for panendoscopy today 08/15/17 appreciate input from GI - Continue to monitor H&H Hypotensive - Resolved with IVF ordered Anoxic brain injury secondary to drug overdose 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 - Clear liquid diet - Patient is a DO NOT RESUSCITATE DVT prophylaxis - Chemoprophylaxis contraindicated at this time secondary to GIB - Bilateral SCD/BREANNA Tyler Mai MD Aug 15, 2017 09:14
[2017-08-15] MEDS: PANTOPRAZOLE SODIUM 40 MG VIAL IV PUSH SCH (10:00)
[2017-08-15] MEDS ORDERED: MIDAZOLAM HCL 2 MG/2 ML VIAL ONE (10:20)
--- NOTE | 2017-08-15 10:54 | GIPROC ---
[facility] [address] [facility]. [facility], [address] EGD PROCEDURE REPORT EXAM DATE: 08/15/2017 PATIENT NAME: Víctor Reyes MR #: [id number] BIRTHDATE: 1975 ATTENDING: Yee Mera MD ORDER #: [id number] CD MIXER HELPER: Bennie Angel and Ellen Rodriguez STATUS: inpatient INDICATIONS: The patient is a 42 yr old male here for an EGD due to iron deficiency anemia and occult blood positive PROCEDURE PERFORMED: EGD w/ biopsy MEDICATIONS: None and Per Anesthesia. TOPICAL ANESTHETIC: CONSENT: The patient understands the risks and benefits of the procedure and understands that these risks include, but are not limited to: sedation, allergic reaction, infection, perforation and/or bleeding. Alternative means of evaluation and treatment include, among others: physical exam, x-rays, and/or surgical intervention. The patient elects to proceed with this endoscopic procedure. medical equipment was checked for proper function. Hand hygiene and appropriate measures for infection prevention was taken. After the risks, benefits and alternatives of the procedure were thoroughly explained, Informed consent was verified, confirmed and timeout was successfully executed by the treatment team. The patient was anesthetized with topical anesthesia and the EC-3490Li (Pedi C) endoscope was introduced through the mouth and advanced to the second portion of the duodenum. Retroflexed views revealed a hiatal hernia The gastroscope was then slowly withdrawn and removed. ESOPHAGUS: There was LA Class A esophagitis noted. STOMACH: There was erythematous moderate gastritis in the gastric antrum. A biopsy was performed using cold forceps. Sample sent for histology. DUODENUM: A polypoid shaped sessile polyp ranging between 3-7mm in size was found in the 2nd part of the duodenum. A biopsy was performed using cold forceps. Sample sent for histology. ADVERSE EVENTS: There were no complications. IMPRESSIONS: 1. There was LA Class A esophagitis noted 2. There was erythematous gastritis in the gastric antrum; biopsy was performed 3. Sessile polyp ranging between 3-7mm in size was found in the 2nd part of the duodenum; biopsy was performed 4. Retroflexed views revealed a hiatal hernia 5. Rectal exam performed. Solid brown stool. Colonoscopy not attempted. RECOMMENDATIONS: 1. Await biopsy results. Biopsy results will not be ready for 7-10 days. If you don't hear from us in two weeks, call our office for biopsy results. 2. Anti-reflux regimen 3. Continue PPI PATIENT CONDITION: stable DISPOSITION: Inpatient REPEAT EXAM: Return 3 years EGD pending biopsy results Yee Mera MD eSigned: Yee Mera MD 08/15/2017 10:54 AM cc: PATIENT NAME: Víctor Reyes MR#: [id number]
[2017-08-15] MEDS ORDERED: MAGNESIUM CITRATE SOLN 300 ML BTL PO ONE (12:00)
[2017-08-15] MEDS ORDERED: PROPOFOL 200 MG/20 ML AMP IV ONE (12:00)
[2017-08-15] MEDS ORDERED: PHENYLEPH/NS 1000 MCG/10 ML SYR IV ONE (12:00)
[2017-08-15] MEDS ORDERED: LIDOCAINE HCL 1% PF 5 ML SYRINGE OTHER ONE (12:00)
[2017-08-15] MEDS: MIRTAZAPINE 15 MG TAB PO SCH (19:57)
[2017-08-15] MEDS: traZODone HCL 50 MG TAB PO SCH (19:58)
[2017-08-16] VITALS (11 sets, daily range): BP systolic 86–134; BP diastolic 57–79; PULSE 67–100; RESP 18–20; TEMP 97.2–98; O2SAT 94–97
[2017-08-16] MEDS: MORPHINE SULFATE 30 MG CONTROLLED RELEASE TAB PO SCH ×3 (05:15→22:13)
[2017-08-16] MEDS: CARISOPRODOL 350 MG TAB PO SCH ×3 (05:15→20:35)
[2017-08-16] MEDS: LORazepam 0.5 MG TAB PO SCH ×3 (05:15→22:11)
[2017-08-16] MEDS: D5-1/2 NS + KCL 20 MEQ INJ 1,000 ML IV SCH ×2 (05:18→16:24)
[2017-08-16] MEDS: DIVALPROEX SODIUM SPRINKLES 125 MG CAP PO SCH ×2 (09:25→20:35)
[2017-08-16] MEDS: PANTOPRAZOLE SODIUM 40 MG VIAL IV PUSH SCH (09:25)
[2017-08-16] MEDS: SODIUM CHLORIDE 0.9% FLUSH 10 ML FLUSH IV FLUSH SCH ×2 (09:25→20:37)
--- NOTE | 2017-08-16 10:09 | HHI.PR ---
Subjective Remarks Follow-up symptomatic anemia/GI bleed 08/14/17-patient seen and examined, transfused 2 units and H&H stable. 08/15/17-and examined, nonverbal, currently nothing by mouth pending and panendoscopy this morning. No acute event overnight 08/16/17-patient seen and examined, H&H stable. Plan for colonoscopy on Friday. No acute event overnight. Objective Vitals Vital Signs Date Time Temp Pulse Resp B/P (MAP) Pulse Ox O2 Delivery O2 Flow Rate FiO2 08/16/17 08:47 97.5 67 18 86/60 (69) 97 08/16/17 05:40 97.2 70 18 87/57 (67) 97 08/16/17 04:30 76 08/16/17 00:18 73 08/16/17 00:00 98.0 100 20 134/79 (97) 95 08/15/17 21:30 99 08/15/17 19:49 97.8 101 18 104/84 (91) 97 08/15/17 16:50 93 08/15/17 16:49 97.8 75 16 108/63 (78) 98 08/15/17 14:22 18 08/15/17 14:22 18 08/15/17 12:35 84 08/15/17 12:17 97.3 84 16 105/58 (74) 98 08/15/17 11:05 97.3 96 20 93/59 (70) 94 I/O 08/15/17 08/15/17 08/15/17 08/16/17 08/16/17 08/16/17 07:00 15:00 23:00 07:00 15:00 23:00 Intake Total 675 ml Balance 675 ml Intake IV Total 25 ml Other 650 ml # Voids 6 Result Diagram: 08/15/17 0607 08/15/17 0607 Objective Remarks GENERAL: NAD with contracture to extremities SKIN: Warm and dry. HEAD: Normocephalic. EYES: No scleral icterus. No injection or drainage. NECK: Supple, trachea midline. No JVD or lymphadenopathy. CARDIOVASCULAR: Regular rate and rhythm without murmurs, gallops, or rubs. RESPIRATORY: Breath sounds equal bilaterally. No accessory muscle use. GASTROINTESTINAL: Abdomen soft, non-tender, nondistended. MUSCULOSKELETAL: No cyanosis, or edema. BACK: Nontender without obvious deformity. No CVA tenderness. 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
--- NOTE | 2017-08-16 15:18 | HHI.GIFU ---
Subjective Remarks Patient is resting in bed, not verbal, no bleeding reported by nurse. According to nurse, pt was given 2 enemas last night and stools have been soft. (Stuart Hernandez) Objective Vitals I&O Vital Signs Date Time Temp Pulse Resp B/P (MAP) Pulse Ox O2 Delivery O2 Flow Rate FiO2 08/16/17 12:23 97.6 71 18 97/58 (71) 94 08/16/17 12:10 81 08/16/17 08:47 97.5 67 18 86/60 (69) 97 08/16/17 08:00 71 08/16/17 05:40 97.2 70 18 87/57 (67) 97 08/16/17 04:30 76 08/16/17 00:18 73 08/16/17 00:00 98.0 100 20 134/79 (97) 95 08/15/17 21:30 99 08/15/17 19:49 97.8 101 18 104/84 (91) 97 08/15/17 16:50 93 08/15/17 16:49 97.8 75 16 108/63 (78) 98 I/O 08/15/17 08/15/17 08/15/17 08/16/17 08/16/17 08/16/17 07:00 15:00 23:00 07:00 15:00 23:00 Intake Total 675 ml Balance 675 ml Intake IV Total 25 ml Other 650 ml # Voids 6 Physical Exam HEENT: normocephalic; atraumatic; no jaundice. CHEST: Chest is clear to auscultation and percussion. CARDIAC: Regular rate and rhythm with no murmur gallop or rubs. ABDOMEN: Soft, nondistended, nontender; no hepatosplenomegaly; bowel sounds are present in all four quadrants. 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 hgb 7.4 on admission, he is s/p 2x PRBC, hgb today is 9.1, no prior hx GIB or endoscopy. S/P EGD on 08/15/17 There was LA Class A esophagitis noted, erythematous gastritis in the gastric antrum; biopsy was performed Sessile polyp ranging between 3-7mm in size was found in the 2nd part of the duodenum; biopsy was performed hiatal hernia. Patient is s/p incomplete colonoscopy on 08/15/17 due to solid brown stools - anoxic brain injury, contractures PLAN - clears tomorrow - Golytely tomorrow, discussed with nurse - Patient received 2 enemas last night according to nurse - NPO after MN tomorrow - obtain consent for colonoscopy on Friday - monitor labs - Await bx from EGD - transfuse as needed further recs to follow pt seen by myself and dr Mera and this note is written on his behalf (Stuart Hernandez) Physician Comments Seen and examined with POT BUILDER, continue bowel prep. Colonoscopy on friday if cleaned out. (Yee Mera MD) Stuart Hernandez Aug 16, 2017 15:18 Yee Mera MD Aug 17, 2017 12:03
[2017-08-16] MEDS: traZODone HCL 50 MG TAB PO SCH (20:36)
[2017-08-16] MEDS: MIRTAZAPINE 15 MG TAB PO SCH (20:36)
[2017-08-17] VITALS (10 sets, daily range): BP systolic 90–125; BP diastolic 56–78; PULSE 53–104; RESP 18; TEMP 97.4–98.4; O2SAT 94–100
[2017-08-17] MEDS: D5-1/2 NS + KCL 20 MEQ INJ 1,000 ML IV SCH ×3 (03:21→21:47)
[2017-08-17] MEDS: LORazepam 0.5 MG TAB PO SCH ×4 (05:27→21:45)
[2017-08-17] MEDS: MORPHINE SULFATE 30 MG CONTROLLED RELEASE TAB PO SCH ×3 (05:27→21:45)
[2017-08-17] MEDS: CARISOPRODOL 350 MG TAB PO SCH ×3 (05:27→21:46)
[2017-08-17] MEDS: REMOVE OLD DURAGESIC (FENTANYL) PATCH T-DERMAL SCH (09:00)
[2017-08-17] MEDS: DIVALPROEX SODIUM SPRINKLES 125 MG CAP PO SCH ×2 (09:07→21:45)
[2017-08-17] MEDS: fentaNYL 25 MCG/HR PATCH T-DERMAL SCH (09:08)
[2017-08-17] MEDS: fentaNYL 100 MCG/HR PATCH T-DERMAL SCH (09:08)
[2017-08-17] MEDS: SODIUM CHLORIDE 0.9% FLUSH 10 ML FLUSH IV FLUSH SCH ×2 (09:09→21:46)
[2017-08-17] MEDS: PANTOPRAZOLE SODIUM 40 MG VIAL IV PUSH SCH (09:09)
--- NOTE | 2017-08-17 09:19 | HHI.GIFU ---
Subjective Remarks Patient is resting in bed, non verbal, nurse by bed side, discussed with nurse the plan and stressed the importance of giving golytely and stools laxatives in preparation for colonoscopy tomorrow. No bleeding reported (Stuart Hernandez) Objective Vitals I&O Vital Signs Date Time Temp Pulse Resp B/P (MAP) Pulse Ox O2 Delivery O2 Flow Rate FiO2 08/17/17 08:26 97.9 67 18 104/68 (80) 99 08/17/17 06:28 19 08/17/17 06:28 19 08/17/17 04:52 97.4 64 18 110/56 (74) 97 08/17/17 00:20 97.4 70 18 109/57 (74) 94 08/17/17 00:00 68 08/16/17 20:37 97.4 81 18 120/77 (91) 95 08/16/17 20:00 70 08/16/17 16:18 97.8 71 18 100/71 (81) 96 08/16/17 12:23 97.6 71 18 97/58 (71) 94 08/16/17 12:10 81 I/O 08/16/17 08/16/17 08/16/17 08/17/17 08/17/17 08/17/17 07:00 15:00 23:00 07:00 15:00 23:00 Intake Total 540 ml 240 ml 2284 ml Output Total 1500 ml Balance 540 ml 240 ml 784 ml Intake Oral 540 ml 240 ml IV Total 2284 ml Output Urine Total 1500 ml # Voids 2 1 # Bowel Movements 1 Physical Exam HEENT: normocephalic; atraumatic; no jaundice. CHEST: Chest is clear to auscultation and percussion. CARDIAC: Regular rate and rhythm with no murmur gallop or rubs. ABDOMEN: Soft, nondistended, nontender; no hepatosplenomegaly; bowel sounds are present in all four quadrants. 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 hgb 7.4 on admission, he is s/p 2x PRBC, hgb today is 9.1, no prior hx GIB or endoscopy. S/P EGD on 08/15/17 There was LA Class A esophagitis noted, erythematous gastritis in the gastric antrum; biopsy was performed Sessile polyp ranging between 3-7mm in size was found in the 2nd part of the duodenum; biopsy was performed hiatal hernia. Patient is s/p incomplete colonoscopy on 08/15/17 due to solid brown stools - anoxic brain injury, contractures PLAN - clears - Golytely today , discussed with nurse - discussed with nurse to give laxatives as well - NPO after MN - obtain consent for colonoscopy on Friday - monitor labs - Await bx from EGD - transfuse as needed further recs to follow pt seen by myself and dr Mera and this note is written on his behalf (Stuart Hernandez) Physician Comments Seen and examined with SUPERVISORY IT SPECIALIST, repeat attempt at colonoscopy tomorrow if preped. (Yee Mera MD) Stuart Hernandez Aug 17, 2017 09:19 Yee Mera MD Aug 17, 2017 10:33
--- NOTE | 2017-08-17 10:24 | HHI.PR ---
Subjective Remarks Follow-up symptomatic anemia/GI bleed 08/14/17-patient seen and examined, transfused 2 units and H&H stable. 08/15/17-and examined, nonverbal, currently nothing by mouth pending and panendoscopy this morning. No acute event overnight 08/16/17-patient seen and examined, H&H stable. Plan for colonoscopy on Friday. No acute event overnight. 08/17/17-patient seen and examined, no acute event overnight, no reported episode of bleeding Objective Vitals Vital Signs Date Time Temp Pulse Resp B/P (MAP) Pulse Ox O2 Delivery O2 Flow Rate FiO2 08/17/17 10:18 16 08/17/17 10:18 16 08/17/17 08:26 97.9 67 18 104/68 (80) 99 08/17/17 07:50 69 08/17/17 06:28 19 08/17/17 06:28 19 08/17/17 04:52 97.4 64 18 110/56 (74) 97 08/17/17 00:20 97.4 70 18 109/57 (74) 94 08/17/17 00:00 68 08/16/17 20:37 97.4 81 18 120/77 (91) 95 08/16/17 20:00 70 08/16/17 16:18 97.8 71 18 100/71 (81) 96 08/16/17 12:23 97.6 71 18 97/58 (71) 94 08/16/17 12:10 81 I/O 08/16/17 08/16/17 08/16/17 08/17/17 08/17/17 08/17/17 07:00 15:00 23:00 07:00 15:00 23:00 Intake Total 540 ml 240 ml 2284 ml Output Total 1500 ml Balance 540 ml 240 ml 784 ml Intake Oral 540 ml 240 ml IV Total 2284 ml Output Urine Total 1500 ml # Voids 2 1 # Bowel Movements 1 Result Diagram: 08/15/1760608/15/1707 Objective Remarks GENERAL: NAD with contracture to extremities SKIN: Warm and dry. HEAD: Normocephalic. EYES: No scleral icterus. No injection or drainage. NECK: Supple, trachea midline. No JVD or lymphadenopathy. CARDIOVASCULAR: Regular rate and rhythm without murmurs, gallops, or rubs. RESPIRATORY: Breath sounds equal bilaterally. No accessory muscle use. GASTROINTESTINAL: Abdomen soft, non-tender, nondistended. MUSCULOSKELETAL: No cyanosis, or edema. BACK: Nontender without obvious deformity. No CVA tenderness. 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
[2017-08-17] MEDS ORDERED: PEG (High)/E-LYTE SOLN 4000 ML BTL PO ONE (16:00)
[2017-08-17] MEDS: traZODone HCL 50 MG TAB PO SCH (21:45)
[2017-08-17] MEDS: MIRTAZAPINE 15 MG TAB PO SCH (21:45)
[2017-08-18] VITALS (9 sets, daily range): BP systolic 92–143; BP diastolic 50–71; PULSE 62–83; RESP 18–20; TEMP 97.4–98.2; O2SAT 93–98
[2017-08-18] MEDS ORDERED: POVIDONE IODINE 5% (ANTISEPSIS KIT) 4 APPLICATIONS EACH NARE PRN (04:30)
[2017-08-18] MEDS ORDERED: CHLORHEXIDINE GLUCONATE 2 % 1 PACK (2 CLOTHS) TOPICAL PRN (04:30)
[2017-08-18] MEDS ORDERED: LACTATED RINGER'S 1000 ML IV PRN (04:30)
[2017-08-18] MEDS ORDERED: SODIUM CHLORID 0.9% 500 ML IV PRN (04:30)
[2017-08-18] MEDS: CARISOPRODOL 350 MG TAB PO SCH ×3 (05:32→22:05)
[2017-08-18] MEDS: LORazepam 0.5 MG TAB PO SCH ×3 (05:32→22:04)
[2017-08-18] MEDS: MORPHINE SULFATE 30 MG CONTROLLED RELEASE TAB PO SCH ×3 (05:33→22:04)
[2017-08-18] MEDS: SODIUM CHLORIDE 0.9% FLUSH 10 ML FLUSH IV FLUSH SCH ×2 (09:03→22:06)
[2017-08-18] MEDS: D5-1/2 NS + KCL 20 MEQ INJ 1,000 ML IV SCH ×2 (09:03→15:28)
[2017-08-18] MEDS: PANTOPRAZOLE SODIUM 40 MG VIAL IV PUSH SCH (09:03)
[2017-08-18] MEDS: DIVALPROEX SODIUM SPRINKLES 125 MG CAP PO SCH ×2 (09:03→22:05)
--- NOTE | 2017-08-18 10:30 | GIPROC ---
[facility] [address] [facility]. 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 PREP QUALITY: poor PREP TYPE:Other: ESTIMATED BLOOD LOSS: None CONSENT: The patient understands the risks and benefits of the procedure and understands that these risks include, but are not limited to: sedation, allergic reaction, infection, perforation and/or bleeding. Alternative means of evaluation and treatment include, among others: physical exam, x-rays, and/or surgical intervention. The patient elects to proceed with this endoscopic procedure. medical equipment was checked for proper function. Hand hygiene and appropriate measures for infection prevention was taken. After the risks, benefits and alternatives of the procedure were thoroughly explained, Informed consent was verified, confirmed and timeout was successfully executed by the treatment team. A digital exam stool in rectum The Pentax EC-[id number] endoscope was introduced through the anus and advanced to the descending colon. The instrument was then slowly withdrawn as the colon was fully examined. COLON FINDINGS: Large amount of solid stool-procedure cancelled. The scope was then completely withdrawn from the patient and the procedure terminated. ADVERSE EVENTS: There were no complications. IMPRESSIONS: 1. Large amount of solid stool-procedure cancelled 2. Stool in rectum RECOMMENDATIONS: Diet as per speech pathology ct abdomen/pelvis cea level, celiac panel we will reattempt colonoscopy if ct negative, will be very difficult to achieve conisder placing ngt for prep if nothing else works RECALL: Return [address] negative Selina Cedeño MD eSigned: Selina Cedeño MD 08/18/2017 10:30 AM cc:
--- NOTE | 2017-08-18 10:58 | HHI.PR ---
Subjective Remarks Follow-up symptomatic anemia/GI bleed 08/14/17-patient seen and examined, transfused 2 units and H&H stable. 08/15/17-and examined, nonverbal, currently nothing by mouth pending and panendoscopy this morning. No acute event overnight 08/16/17-patient seen and examined, H&H stable. Plan for colonoscopy on Friday. No acute event overnight. 08/17/17-patient seen and examined, no acute event overnight, no reported episode of bleeding 08/18/17-patient seen and examined, NPO and plan for Colonoscopy however patient did not take much of the bowel prep overnight Objective Vitals Vital Signs Date Time Temp Pulse Resp B/P (MAP) Pulse Ox O2 Delivery O2 Flow Rate FiO2 08/18/17 10:23 97.5 74 20 95/60 (72) 94 08/18/17 08:00 98.1 62 20 92/71 (78) 98 08/18/17 08:00 70 08/18/17 06:35 18 08/18/17 06:35 18 08/18/17 04:27 97.4 80 18 133/62 (85) 94 08/18/17 03:59 78 08/18/17 00:55 97.4 74 18 102/50 (67) 93 08/17/17 20:25 98.4 86 18 125/78 (94) 95 08/17/17 20:00 104 08/17/17 16:54 98.2 77 18 95/77 (83) 100 08/17/17 16:17 53 08/17/17 12:52 97.6 73 18 90/69 (76) 96 I/O 08/17/17 08/17/17 08/17/17 08/18/17 08/18/17 08/18/17 07:00 15:00 23:00 07:00 15:00 23:00 Intake Total 2284 ml 2343 ml 240 ml 200 ml Output Total 1500 ml 1700 ml Balance 784 ml 643 ml 240 ml 200 ml Intake Oral 720 ml 240 ml IV Total 2284 ml 1623 ml Other 200 ml Output Urine Total 1500 ml 1700 ml # Voids 1 4 # Bowel Movements 3 Result Diagram: 08/15/1760608/15/17 0607 Objective Remarks GENERAL: NAD with contracture to extremities SKIN: Warm and dry. HEAD: Normocephalic. EYES: No scleral icterus. No injection or drainage. NECK: Supple, trachea midline. No JVD or lymphadenopathy. CARDIOVASCULAR: Regular rate and rhythm without murmurs, gallops, or rubs. RESPIRATORY: Breath sounds equal bilaterally. No accessory muscle use. GASTROINTESTINAL: Abdomen soft, non-tender, nondistended. MUSCULOSKELETAL: No cyanosis, or edema. BACK: Nontender without obvious deformity. No CVA tenderness. 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
[2017-08-18] MEDS ORDERED: DO NOT ADM ANY ANTICOAGULANT DRUGS PRN (12:00)
[2017-08-18] MEDS ORDERED: PROPOFOL 200 MG/20 ML AMP IV ONE (12:00)
[2017-08-18] MEDS ORDERED: DIATRIZOATE MEGLUM/DIATRIZOATE SOD 9 ML CUP PO ONE (12:00)
[2017-08-18] MEDS ORDERED: IOHEXOL 350 MG/ML 10 ML VIAL (for RAD DIAG) IVCONTRAST ONE (18:49)
--- NOTE | 2017-08-18 19:22 | RADRPT ---
EXAM DATE/TIME: 08/18/2017 18:27 [place] COMPARISON: No previous studies available for comparison. INDICATIONS : Anemia IV CONTRAST: 80 cc Omnipaque 350 (iohexol) IV ORAL CONTRAST: Prescribed oral contrast ingested. RADIATION DOSE: 5.39 CTDIvol (mGy) MEDICAL HISTORY : Renal failure,gerd ,anoxic brain injurey SURGICAL HISTORY : None. ENCOUNTER: Initial ACUITY: 1 day PAIN SCALE: Non-responsive LOCATION: Abdomen TECHNIQUE: Volumetric scanning of the abdomen and pelvis was performed. Using automated exposure control and ad justment of the mA and/or kV according to patient size, radiation dose was kept as low as reasonably achievable to obtain optimal diagnostic quality images. DICOM format image data is available electro nically for review and comparison. FINDINGS: LOWER LUNGS: Bilateral pleural effusions, right greater than left. Compressive atelectasis in both lung bases. LIVER: Homogeneous density without lesion. There is no dilation of the biliary tree. No calcified gallston es. SPLEEN: Normal size without lesion. PANCREAS: Within normal limits. KIDNEYS: There appear to be multiple prominent calcified stones throughout both kidneys suggestive of staghorn calculus. No definite hydronephrosis is seen. ADRENAL GLANDS: Within normal limits. VASCULAR: There is no aortic aneurysm. There is an IVC filter in place in the midabdomen. BOWEL/MESENTERY: The small bowel is nondistended. There is contrast seen in the small bowel. However, there is a moder ate amount of stool in the colon with a large bolus of stool in the rectum. There is some gaseous dis tention of the colon. No definite free air or free fluid is seen. ABDOMINAL WALL: Within normal limits. RETROPERITONEUM: Nonspecific prominent left aortic lymph node measuring 1.9 cm. Otherwise, no other definite adenopath y is seen. BLADDER: The bladder wall appears to be thickened. The urinary bladder is decompressed. This limits the visual ization of the urinary bladder. REPRODUCTIVE: Within normal limits. INGUINAL: There is no lymphadenopathy or hernia. MUSCULOSKELETAL: Diffuse degenerative changes. There is curvature lumbar spine to the left. CONCLUSION: 1. There is moderate amount of stool throughout the colon with a large bolus of stool in the rectum. There is some gaseous distention of the colon suggestive of an ileus. The small bowel is nondilated. 2. Prominent bilateral staghorn calculi 3. Bilateral pleural effusions, right greater than left with compressive atelectasis. Rafael J. Siragusa, MD on August 18, 2017 at 19:14 Board Certified Radiologist. This report was verified electronically.
[2017-08-18] MEDS: traZODone HCL 50 MG TAB PO SCH (22:04)
[2017-08-18] MEDS: MIRTAZAPINE 15 MG TAB PO SCH (22:04)
[2017-08-19] VITALS (10 sets, daily range): BP systolic 103–127; BP diastolic 52–80; PULSE 55–106; RESP 18–19; TEMP 97.4–98.8; O2SAT 94–98
[2017-08-19] MEDS: MORPHINE SULFATE 30 MG CONTROLLED RELEASE TAB PO SCH ×3 (05:58→20:29)
[2017-08-19] MEDS: LORazepam 0.5 MG TAB PO SCH ×3 (05:58→20:28)
[2017-08-19] MEDS: CARISOPRODOL 350 MG TAB PO SCH ×3 (05:58→20:29)
[2017-08-19] MEDS: D5-1/2 NS + KCL 20 MEQ INJ 1,000 ML IV SCH ×3 (05:59→17:30)
[2017-08-19] MEDS: PANTOPRAZOLE SODIUM 40 MG VIAL IV PUSH SCH (08:51)
[2017-08-19] MEDS: DIVALPROEX SODIUM SPRINKLES 125 MG CAP PO SCH ×2 (08:51→20:28)
[2017-08-19] MEDS: SODIUM CHLORIDE 0.9% FLUSH 10 ML FLUSH IV FLUSH SCH ×2 (08:51→20:27)
--- NOTE | 2017-08-19 13:20 | HHI.PR ---
Subjective Remarks Follow-up symptomatic anemia/GI bleed 08/14/17-patient seen and examined, transfused 2 units and H&H stable. 08/15/17-and examined, nonverbal, currently nothing by mouth pending and panendoscopy this morning. No acute event overnight 08/16/17-patient seen and examined, H&H stable. Plan for colonoscopy on Friday. No acute event overnight. 08/17/17-patient seen and examined, no acute event overnight, no reported episode of bleeding 08/18/17-patient seen and examined, NPO and plan for Colonoscopy however patient did not take much of the bowel prep overnight 08/19/17-patient seen and examined,CT abdomen with evidence of constipation; Patient is nonverbal. Colonoscopy yesterday was incomplete Objective Vitals Vital Signs Date Time Temp Pulse Resp B/P (MAP) Pulse Ox O2 Delivery O2 Flow Rate FiO2 08/19/17 12:41 98.5 88 18 112/69 (83) 98 08/19/17 11:00 94 21 08/19/17 08:15 98.0 70 18 116/59 (78) 97 08/19/17 08:00 79 08/19/17 07:01 18 08/19/17 07:01 18 08/19/17 04:00 97.8 55 18 108/57 (74) 97 08/19/17 00:00 98.4 78 18 127/60 (82) 94 08/19/17 00:00 76 08/18/17 23:52 83 08/18/17 20:00 98.2 83 18 143/61 (88) 94 08/18/17 16:00 62 08/18/17 16:00 97.9 79 18 105/64 (78) 95 I/O 08/18/17 08/18/17 08/18/17 08/19/17 08/19/17 08/19/17 07:00 15:00 23:00 07:00 15:00 23:00 Intake Total 240 ml 200 ml 1000 ml 2200 ml Output Total 300 ml Balance 240 ml -100 ml 1000 ml 2200 ml Intake Oral 240 ml IV Total 1000 ml 2200 ml Other 200 ml Output Urine Total 300 ml # Voids 4 2 1 # Bowel Movements 0 Result Diagram: 08/15/17 0607 08/15/17 0607 Imaging Last Impressions Abdomen/Pelvis CT 08/18/17 0000 Signed Impressions: Service Date/Time: Friday, August 18, 2017 18:27 - CONCLUSION: 1. There is moderate amount of stool throughout the colon with a large bolus of stool in the rectum. There is some gaseous distention of the colon suggestive of an ileus. The small bowel is nondilated. 2. Prominent bilateral staghorn calculi 3. Bilateral pleural effusions, right greater than left with compressive atelectasis. Rafael Newell MD Objective Remarks GENERAL: NAD with contracture to extremities SKIN: Warm and dry. HEAD: Normocephalic. EYES: No scleral icterus. No injection or drainage. NECK: Supple, trachea midline. No JVD or lymphadenopathy. CARDIOVASCULAR: Regular rate and rhythm without murmurs, gallops, or rubs. RESPIRATORY: Breath sounds equal bilaterally. No accessory muscle use. GASTROINTESTINAL: Abdomen soft, non-tender, nondistended. MUSCULOSKELETAL: No cyanosis, or edema. BACK: Nontender without obvious deformity. No CVA tenderness. Procedures EGD A/P Problem List: (1) GI bleed ICD Code: K92.2 - Gastrointestinal hemorrhage, unspecified (2) Symptomatic anemia ICD Code: D64.9 - Anemia, unspecified (3) Anoxic brain injury ICD Code: G93.1 - Anoxic brain injury Status: Chronic Assessment and Plan 42-year-old man with Symptomatic anemia GIB - s/p Transfusion 2 units PRBC - s/p Protonic gtt mouth and continue PPI -s/p EGD 08/15/17 and colonoscopy on 08/18/17 was incomplete d/t poor prep; appreciate input from GI -CT abdomen noted and review with evidence of constipation - Continue to monitor H&H Constipation per CT abdomen Treat with SOD enema x 1 now 08/19/17 Hypotensive - Resolved Anoxic brain injury secondary to drug overdose 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
[2017-08-19] MEDS ORDERED: SODIUM POLYSTYRENE SULFONATE 30 GM/120 ML ENEMA RECTAL ONE (15:00)
--- NOTE | 2017-08-19 16:37 | HHI.GIFU ---
Subjective Remarks Pt in bed, vocalizing unintelligibly. NO obvious bleeding. (Libby Mcgee) Objective Vitals I&O Vital Signs Date Time Temp Pulse Resp B/P (MAP) Pulse Ox O2 Delivery O2 Flow Rate FiO2 08/19/17 12:41 98.5 88 18 112/69 (83) 98 08/19/17 12:00 85 08/19/17 11:00 94 21 08/19/17 08:15 98.0 70 18 116/59 (78) 97 08/19/17 08:00 79 08/19/17 07:01 18 08/19/17 07:01 18 08/19/17 04:00 97.8 55 18 108/57 (74) 97 08/19/17 00:00 98.4 78 18 127/60 (82) 94 08/19/17 00:00 76 08/18/17 23:52 83 08/18/17 20:00 98.2 83 18 143/61 (88) 94 I/O 08/18/17 08/18/17 08/18/17 08/19/17 08/19/17 08/19/17 07:00 15:00 23:00 07:00 15:00 23:00 Intake Total 240 ml 200 ml 1000 ml 2200 ml Output Total 300 ml Balance 240 ml -100 ml 1000 ml 2200 ml Intake Oral 240 ml IV Total 1000 ml 2200 ml Other 200 ml Output Urine Total 300 ml # Voids 4 2 1 # Bowel Movements 0 Laboratory Laboratory Tests Test 08/13/17 18:10 08/13/17 20:00 08/15/17 06:07 08/18/17 13:00 Iron Level 14 MCG/DL Total Iron Binding Capacity 175 MCG/DL Percent Iron Saturation 8.0 % Ferritin 87 NG/ML Blood Urea Nitrogen 13 MG/DL 14 MG/DL Creatinine 1.00 MG/DL 0.98 MG/DL Random Glucose 84 MG/DL 62 MG/DL Total Protein 7.7 GM/DL Albumin 1.7 GM/DL Calcium Level 8.4 MG/DL 8.2 MG/DL Alkaline Phosphatase 73 U/L Aspartate Amino Transf (AST/SGOT) 15 U/L Alanine Aminotransferase (ALT/SGPT) 9 U/L Total Bilirubin 0.3 MG/DL Sodium Level 142 MEQ/L 142 MEQ/L Potassium Level 4.5 MEQ/L 4.4 MEQ/L Chloride Level 109 MEQ/L 110 MEQ/L Carbon Dioxide Level 28.3 MEQ/L 25.6 MEQ/L Vitamin B12 Level 807 PG/ML Folate 5.5 NG/ML Prothrombin Time 11.2 SEC Prothromb Time International Ratio 1.1 RATIO Activated Partial Thromboplast Time 23.2 SEC White Blood Count 7.7 TH/MM3 Red Blood Count 4.30 MIL/MM3 Hemoglobin 9.1 GM/DL Hematocrit 29.7 % Mean Corpuscular Volume 69.0 FL Mean Corpuscular Hemoglobin 21.3 PG Mean Corpuscular Hemoglobin Concent 30.8 % Red Cell Distribution Width 23.3 % Platelet Count 214 TH/MM3 Mean Platelet Volume 7.1 FL Neutrophils (%) (Auto) 70.2 % Lymphocytes (%) (Auto) 18.6 % Monocytes (%) (Auto) 9.3 % Eosinophils (%) (Auto) 1.4 % Basophils (%) (Auto) 0.5 % Neutrophils # (Auto) 5.4 TH/MM3 Lymphocytes # (Auto) 1.4 TH/MM3 Monocytes # (Auto) 0.7 TH/MM3 Eosinophils # (Auto) 0.1 TH/MM3 Basophils # (Auto) 0.0 TH/MM3 CBC Comment DIFF FINAL Differential Comment Anion Gap 6 MEQ/L Estimat Glomerular Filtration Rate 85 ML/MIN Carcinoembryonic Antigen 0.7 NG/ML Imaging Last Impressions Abdomen/Pelvis CT 08/18/17 0000 Signed Impressions: Service Date/Time: Friday, August 18, 2017 18:27 - CONCLUSION: 1. There is moderate amount of stool throughout the colon with a large bolus of stool in the rectum. There is some gaseous distention of the colon suggestive of an ileus. The small bowel is nondilated. 2. Prominent bilateral staghorn calculi 3. Bilateral pleural effusions, right greater than left with compressive atelectasis. Rafael Newell MD Physical Exam HEENT: normocephalic; atraumatic; no jaundice. CHEST: unable to auscultate d/t vocalizations CARDIAC: radial pulse +2 ABDOMEN: Soft, nondistended, nontender; no hepatosplenomegaly; bowel sounds are present in all four quadrants. 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 hgb 7.4 on admission, he is s/p 2x PRBC, hgb today is 9.1, no prior hx GIB or endoscopy. S/P EGD on 08/15/17 There was LA Class A esophagitis noted, erythematous gastritis in the gastric antrum; biopsy was performed Sessile polyp ranging between 3-7mm in size was found in the 2nd part of the duodenum; biopsy was performed hiatal hernia. Patient is s/p incomplete colonoscopy on 08/15/17 due to solid brown stools - anoxic brain injury, contractures 08/19/17 - path EGD benign. CT suggested colonic ileus. s/p attempted but unsuccessful colonoscopy d/t stool 08/18/17 HH is stable. d/w pts Mother, father makes decisions and he is in the hospital currently. PLAN - bowel regimen - family will notify if they wish to pursue 3rd colonoscopy - if colonoscopy will need NGT - monitor labs - transfuse as needed - supportive care pt seen by myself and dr Cedeño and this note is written on her behalf (Libby Mcgee) Libby Mcgee Aug 19, 2017 16:37 Selina Cedeño MD Aug 19, 2017 21:27
[2017-08-19] MEDS: traZODone HCL 50 MG TAB PO SCH (20:28)
[2017-08-19] MEDS: MIRTAZAPINE 15 MG TAB PO SCH (20:28)
[2017-08-20] MEDS: D5-1/2 NS + KCL 20 MEQ INJ 1,000 ML IV SCH ×2 (00:16→05:41)
[2017-08-20 00:20] VITALS: BP 115/75; PULSE 60; RESP 20; TEMP 98.1; O2SAT 96
[2017-08-20] MEDS: MORPHINE SULFATE 30 MG CONTROLLED RELEASE TAB PO SCH (05:40)
[2017-08-20] MEDS: CARISOPRODOL 350 MG TAB PO SCH (05:41)
[2017-08-20] MEDS: LORazepam 0.5 MG TAB PO SCH (05:41)
[2017-08-20 06:15] VITALS: BP 115/80; PULSE 69; RESP 19; TEMP 98.5; O2SAT 97
[2017-08-20 07:44] LABS: BASOPHIL % 0.5 % (0.0-2.0); EOSINOPHIL # 0.1 TH/MM3 (0-0.4); EOSINOPHIL % 1.8 % (0.0-4.0); HEMATOCRIT 29.7 % (39.0-51.0); HEMOGLOBIN 9.4 GM/DL (13.0-17.0); LYMPH % 12.1 % (9.0-44.0); LYMPHOCYTE # 0.9 TH/MM3 (1.0-4.8); MEAN CORPUSCULAR HGB CONC 31.5 % (32.0-36.0); MEAN PLATELET VOLUME 8.1 FL (7.0-11.0); MONO % 5.3 % (0.0-8.0); MONOCYTE # 0.4 TH/MM3 (0-0.9); NEUT % 80.3 % (16.0-70.0); PLATELET COUNT 196 TH/MM3 (150-450); RED BLOOD COUNT 4.25 MIL/MM3 (4.50-5.90); RED CELL DISTRIBUTION WIDTH 24.3 % (11.6-17.2); WHITE BLOOD COUNT 7.4 TH/MM3 (4.0-11.0)
[2017-08-20 08:00] VITALS: BP 93/51; PULSE 63; PULSE 65; RESP 18; TEMP 98.6; O2SAT 100
--- NOTE | 2017-08-20 08:16 | HHI.PR ---
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 taking po very well with no comlains of abdominal pain d/w staff nurse- had a huge BM last evening- brown- no blood Objective Vitals Vital Signs Date Time Temp Pulse Resp B/P (MAP) Pulse Ox O2 Delivery O2 Flow Rate FiO2 08/20/17 06:15 98.5 69 19 115/80 (92) 97 08/20/17 00:20 98.1 60 20 115/75 (88) 96 08/19/17 21:30 98.8 67 19 110/80 (90) 97 08/19/17 16:00 97 08/19/17 16:00 98.2 106 18 117/77 (90) 96 08/19/17 12:41 98.5 88 18 112/69 (83) 98 08/19/17 12:00 85 08/19/17 11:00 94 21 08/19/17 08:15 98.0 70 18 116/59 (78) 97 I/O 08/19/17 08/19/17 08/19/17 08/20/17 08/20/17 08/20/17 07:00 15:00 23:00 07:00 15:00 23:00 Intake Total 2200 ml 1000 ml 500 ml Output Total 400 ml Balance 2200 ml 600 ml 500 ml Intake Oral 0 ml 500 ml IV Total 2200 ml 1000 ml Output Urine Total 400 ml # Voids 1 1 6 # Bowel Movements 1 0 Result Diagram: 08/20/17 0711 Imaging Last Impressions Abdomen/Pelvis CT 08/18/17 0000 Signed Impressions: Service Date/Time: Friday, August 18, 2017 18:27 - CONCLUSION: 1. There is moderate amount of stool throughout the colon with a large bolus of stool in the rectum. There is some gaseous distention of the colon suggestive of an ileus. The small bowel is nondilated. 2. Prominent bilateral staghorn calculi 3. Bilateral pleural effusions, right greater than left with compressive atelectasis. 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" anicteric no rales or wheezes regular rhythm abdomen- pain pump in place, good bowel sounds condom catheter in place extremities- atrophic, flexion contractures moves extremities- non purposeful movements Procedures 2/2- EGD- esophagitis, duodenal polyp, bital hernia 2/ colonoscopy- incomplete A/P Problem List: (1) GI bleed ICD Code: K92.2 - Gastrointestinal hemorrhage, unspecified (2) Symptomatic anemia ICD Code: D64.9 - Anemia, unspecified (3) Anoxic brain injury ICD Code: G93.1 - Anoxic brain injury Status: Chronic Assessment and Plan 42-year-old man with Symptomatic anemia from GIB S/p EGD- Esophagitis and hiatal hernia s/p Transfusion 2 units PRBC - continue PPI -s/p EGD 08/15/17 and colonoscopy on 08/18/17 was incomplete d/t poor prep; appreciate input from GI -CT abdomen noted and review with evidence of constipation - Continue to monitor H&H- H and H stable - no further reported episodes o GIB Constipation - patient on chronic opioids S/P SOD enema x 1 08/19/17 - staff reported a huge BM last evening -bowel regimen- start scheduled colace 100 mg po bid, Lactulose 30 cc bid MOM at hs -continue on Miralax 17 gm po daily consider Relistor SQ alf- - will defer to SNF Hypotensive - Resolved Anoxic brain injury secondary to drug overdose- patient interactive but baseline bedbound 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
--- NOTE | 2017-08-20 08:53 | HHI.DS ---
Discharge Summary Admission Date Aug 13, 2017 at 18:27 Discharge Date: Aug 20, 2017 Admitting Diagnosis Anemia, GI bleed (1) GI bleed ICD Code: K92.2 - Gastrointestinal hemorrhage, unspecified Diagnosis: Principal (2) Symptomatic anemia ICD Code: D64.9 - Anemia, unspecified Diagnosis: Principal (3) Constipation ICD Code: K59.00 - Constipation Diagnosis: Principal Status: Chronic (4) Anoxic brain injury ICD Code: G93.1 - Anoxic brain injury Status: Chronic Procedures 2/2- EGD- esophagitis, duodenal polyp, bital hernia 2/ colonoscopy- incomplete Brief History - From Admission Written by Sharlene Hdz, acting as scribe for Dr. Minor on 08/13/17 at 18: 07. This is a 42-year-old male with PMH of anoxic brain injury secondary to drug overdose currently under [facility] care [facility] in [facility] who presents to [facility] ED for evaluation of anemia reported by lab work completed at the patients facility. Unable to obtain history from patient secondary to cognitive impairment and therefore history is obtained from discussion with the ED and review of the medical record. Reportedly, hemoglobin was reported to be 6.2 and hematocrit of 22.4. Per the ED note, the patient's care team, including the hospice nurse, spoke with the patient's father who is the decision-maker and gave permission for the patient to be transported to [facility] and have blood transfusion should that be needed. Also per ED note, patient's father consents to lab, fluids, blood transfusion and consult to gastroenterology. He does not resend patient's DO NOT RESUSCITATE status. Patient is alert and oriented. He does have some repetitive vocalizations but he intermittently answers questions appropriately. He has no complaints. He is wanting to eat. Patients stool hemoccult was positive. CBC/BMP: 08/20/17 0711 Significant Findings Laboratory Tests Test 08/18/17 13:00 08/20/17 07:11 Red Blood Count 4.25 MIL/MM3 (4.50-5.90) Hemoglobin 9.4 GM/DL (13.0-17.0) Hematocrit 29.7 % (39.0-51.0) Mean Corpuscular Volume 70.0 FL (80.0-100.0) Mean Corpuscular Hemoglobin 22.0 PG (27.0-34.0) Mean Corpuscular Hemoglobin Concent 31.5 % (32.0-36.0) Red Cell Distribution Width 24.3 % (11.6-17.2) Neutrophils (%) (Auto) 80.3 % (16.0-70.0) Lymphocytes # (Auto) 0.9 TH/MM3 (1.0-4.8) Imaging Last Impressions Abdomen/Pelvis CT 08/18/17 0000 Signed Impressions: Service Date/Time: Friday, August 18, 2017 18:27 - CONCLUSION: 1. There is moderate amount of stool throughout the colon with a large bolus of stool in the rectum. There is some gaseous distention of the colon suggestive of an ileus. The small bowel is nondilated. 2. Prominent bilateral staghorn calculi 3. Bilateral pleural effusions, right greater than left with compressive atelectasis. Rafael Newell MD PE at Discharge awake and alert, oriented x 3, speech some slurring but intelligle states his name " Yassine", "Aniyah grijalva" anicteric no rales or wheezes regular rhythm abdomen- pain pump in place, good bowel sounds condom catheter in place extremities- atrophic, flexion contractures moves extremities- non purposeful movements Pt update on day of discharge awake and alert, interactive patient ahd a big BM last evening- no bleeding tolerating po Hospital Course 42-year-old man with Symptomatic anemia from GIB S/p EGD- Esophagitis and hiatal hernia s/p Transfusion 2 units PRBC - continue PPI -s/p EGD 08/15/17 and colonoscopy on 08/18/17 was incomplete d/t poor prep; appreciate input from GI -CT abdomen noted and review with evidence of constipation - Continue to monitor H&H- H and H stable - no further reported episodes o GIB Constipation - patient on chronic opioids S/P SOD enema x 1 08/19/17 - staff reported a huge BM last evening -bowel regimen- start scheduled colace 100 mg po bid, Lactulose 30 cc bid MOM at hs -continue on Miralax 17 gm po daily 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 Hypotensive - Resolved Anoxic brain injury secondary to drug overdose- patient interactive but baseline bedbound 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 - Patient is a DO NOT RESUSCITATE - continue on his pain meds regimen DVT prophylaxis - Chemoprophylaxis contraindicated at this time secondary to GIB - Bilateral SCD/BREANNA rothmane DC today custodial staff facility - hopefully will be closely monitoring patient BM - to avoid constipation- and ask SNF MD to adjust bowel regimen since patient is on chronic opioids- SNF MD may consider adding Relistor to regimen Pt Condition on Discharge: Stable Discharge Disposition: Discharge to SNF Discharge Time: > 30 minutes Discharge Instructions DIET: Follow Instructions for: As Tolerated, No Restrictions Speech Therapy-Diet Recommends: Mechanical Soft, Other Additional Diet Instructions: with thin liquids high fibre diet Activities you can perform: See Additionl Instruction, Continue Bedrest Other Activity Instructions: please do passive range of motion daily out of bed to cahir daily assist with all his emals Follow up Referrals: Gastroenterology - 2 Weeks with Selina Cedeño MD PCP Follow-up - 08/20/17 with [facility] New Medications: Divalproex Sprinkles (Depakote Sprinkles) 125 mg Cap 125 MG PO BID for Agitation for 10 Days, #30 CAP Magnesium Hydroxide (Qc Milk of Magnesia) 400 Mg/5 Ml Keerthi 30 ML PO HS for cosnitpation for 30 Days, #1 MILLIUNITS 1 Refill Pantoprazole (Pantoprazole) 40 Mg Tab 40 MG PO DAILY for esophagitis for 30 Days, #30 TAB Sennosides (Senna-Lax) 8.6 Mg Tab 17.2 MG PO Q12H for consitaptin for 10 Days, TAB [Lactulose Liq] () 30 ML SYRP 30 ML PO DAILY for constipation for 30 Days, #1 Continued Medications: Ascorbic Acid (Vitamin C) 500 Mg Cap 500 MG PO BID, CAP Fentanyl 75 Mcg/Hr patch (Fentanyl 75 Mcg/Hr patch) 75 Mcg/Hr Dis 75 MCG TD Q3D, DIS Lorazepam (Ativan) 0.5 Mg Tab 0.5 TAB PO Q8 PRN for ANXIETY, TAB Mirtazapine (Mirtazapine) 15 Mg Tab 15 MG PO HS, TAB Morphine Sulfate (Morphine Sulfate) 30 Mg Tab 30 MG PO Q8, TAB Multiple Vitamins W/ Minerals (Multimineral Plus) Plus Tab 1 TAB PO DAILY Zinc Sulfate (Zinc Sulfate) 220 Mg Cap 220 MG PO DAILY, CAP Discontinued Medications: Docusate Sodium (Colace) 50 Mg Cap 100 MG PO BID, CAP Hydrocodone-Acetaminophen 5-325 mg (Graham 5-325 mg) 325 Mg/5 Mg Tab 1 TAB PO BID PRN for PAIN, TAB Zolpidem Tartrate (Ambien 5 Mg Tab) 5 Mg Tab 5 MG PO HS, TAB Nita Townsend MD Aug 20, 2017 08:53
[2017-08-20] MEDS ORDERED: PANT40TA3 PO (08:58)
[2017-08-20] MEDS ORDERED: SENN187 PO (08:58)
[2017-08-20] MEDS ORDERED: MAGN30S PO (08:58)
[2017-08-20] MEDS ORDERED: CARI350T25 PO (08:58)
[2017-08-20] MEDS ORDERED: POLYETHYLENE GLYCOL 17 GM PKG PO SCH (09:00)
[2017-08-20] MEDS ORDERED: LACTULOSE SYRUP 20 GM/30 ML CUP PO SCH (09:00)
[2017-08-20] MEDS ORDERED: PANTOPRAZOLE SOD 40 MG DELAYED RELEASE TAB PO SCH (09:00)
[2017-08-20] MEDS ORDERED: DOCUSATE SODIUM 50 MG/SENNA 8.6 MG TAB PO SCH ×2 (09:00→09:15)
[2017-08-20] MEDS: REMOVE OLD DURAGESIC (FENTANYL) PATCH T-DERMAL SCH (09:00)
[2017-08-20] MEDS ORDERED: DOCUSATE SODIUM 100 MG CAP PO SCH (09:00)
[2017-08-20] MEDS ORDERED: Lactulose Liq PO (09:05)
[2017-08-20] MEDS ORDERED: DIVA125C PO (09:07)
[2017-08-20] MEDS: DIVALPROEX SODIUM SPRINKLES 125 MG CAP PO SCH (09:18)
[2017-08-20] MEDS: fentaNYL 25 MCG/HR PATCH T-DERMAL SCH (09:19)
[2017-08-20] MEDS: fentaNYL 100 MCG/HR PATCH T-DERMAL SCH (09:20)
[2017-08-20] MEDS: SODIUM CHLORIDE 0.9% FLUSH 10 ML FLUSH IV FLUSH SCH (09:30)
[2017-08-20 13:52] LABS: ENDOMYSIAL AB SCREEN ND (NEGATIVE); ENDOMYSIAL AB TITER ND (<1:5)
[2017-08-20] MEDS ORDERED: MAGNESIUM HYDROXIDE SUSP 30 ML CUP PO SCH (21:00)
== END 2017-08-20 11:24 | DRG 378 ==
LOC: NEPE 14:59 → NEDA 18:04 → OBSVTOIN 18:27 → N05A 19:00
PROVIDERS: ADMIT Internal Medicine; ATTEND Internal Medicine
PROC: 30233N1 Transfusion of Nonautologous Red Blood Cells into Peripheral Vein, Percutaneous Approach (ICD-10-PCS; principal; 2017-08-13)
PROC: 0DB78ZX Excision of Stomach, Pylorus, Via Natural or Artificial Opening Endoscopic, Diagnostic (ICD-10-PCS; 2017-08-15)
PROC: 0DB98ZX Excision of Duodenum, Via Natural or Artificial Opening Endoscopic, Diagnostic (ICD-10-PCS; 2017-08-15 10:25)
PROC: 0DJD8ZZ Inspection of Lower Intestinal Tract, Via Natural or Artificial Opening Endoscopic (ICD-10-PCS; 2017-08-18)
DX: K92.2 Gastrointestinal hemorrhage, unspecified (principal); R64 Cachexia; G93.1 Anoxic brain damage, not elsewhere classified; I95.9 Hypotension, unspecified; K20.9 Esophagitis, unspecified; Z87.891 Personal history of nicotine dependence; M24.50 Contracture, unspecified joint; F41.9 Anxiety disorder, unspecified; F32.9 Major depressive disorder, single episode, unspecified; Z87.820 Personal history of traumatic brain injury; Z87.440 Personal history of urinary (tract) infections; R41.89 Other symptoms and signs involving cognitive functions and awareness; Z87.898 Personal history of other specified conditions; Z66 Do not resuscitate; Z51.5 Encounter for palliative care; Z74.01 Bed confinement status; K29.70 Gastritis, unspecified, without bleeding; K44.9 Diaphragmatic hernia without obstruction or gangrene; K31.7 Polyp of stomach and duodenum; K59.00 Constipation, unspecified; Z79.891 Long term (current) use of opiate analgesic; D50.9 Iron deficiency anemia, unspecified
CPT/HCPCS: 36430; 74177; 80048; 80053; 82378; 82607; 82728; 82746; 82784; 83516; 83540; 83550; 85025; 85610; 85730; 86850; 86900; 86901; 86920; 88305; 99285; C9113; J2250; J2370; J3480; P9016; Q9963; Q9967